=== PATIENT | male | born 1970 | race American Indian/Alaskan Native ===

== ENCOUNTER 2017-08-08 13:16 | Emergency (ER) | payer SELFPAY ==
[2017-08-08] MEDS ORDERED: LIDOCAINE VISCOUS 2% PO ONE (16:34)
[2017-08-08] MEDS ORDERED: ZOFRAN IV ONE (16:34)
[2017-08-08] MEDS ORDERED: PEPCID IV ONE (16:34)
[2017-08-08] MEDS ORDERED: ALUM-MAG HYDROX-SIMETH 200-200-20MG/5ML PO ONE (16:34)
--- NOTE | 2017-08-08 16:36 | Emergency Department Report ---
Blank Doc - Documentation Documentation: Patient is a 46-year-old male who presents with epigastric abdominal pain and blood tinged vomit that has been going on for about a month. Patient states that he is now always in pain and he is feeling a lot weaker. I will give IV Zofran and IV Pepcid, CBC and BMP and lipase.
[2017-08-08 16:56] LABS: Basophils % (Auto) 0.9 % (0.0-1.8); Eosinophils % (Auto) 0.9 % (0.0-4.3); Hematocrit 48.4 % (35.5-45.6); Hemoglobin 15.9 gm/dl (11.8-15.2); Lymphocytes # (Auto) 1.3 K/mm3 (1.2-5.4); Lymphocytes % (Auto) 31.9 % (13.4-35.0); Mean Corpuscular HGB Conc 33 % (32-34); Mean Corpuscular Hemoglobin 29 pg (28-32); Mean Corpuscular Volume 89 fl (84-94); Monocytes # (Auto) 0.6 K/mm3 (0.0-0.8); Monocytes % (Auto) 14.2 % (0.0-7.3); Platelet Count 132 K/mm3 (140-440); Red Blood Count 5.45 M/mm3 (3.65-5.03); Red Cell Distribution Width 14.7 % (13.2-15.2)
[2017-08-08 17:07] LABS: BUN/Creatinine Ratio 14; Blood Urea Nitrogen 13 mg/dL (9-20); Calcium 8.8 mg/dL (8.4-10.2); Hemolysis Index 21
[2017-08-08 17:34] VITALS: BP 120/82
--- NOTE | 2017-08-08 18:33 | Emergency Department Report ---
ED GI Bleed HPI - General Chief complaint: GI Bleed Stated complaint: VOMITING BLOOD Time Seen by Provider: 08/08/17 16:34 Source: patient Mode of arrival: Ambulatory Limitations: No Limitations - History of Present Illness Initial comments: 46-year-old male past medical history smoker presents with complaint of approximately 5-6 weeks of intermittent episodes of vomiting with slightly blood -streaked vomitus. Patient states that he has been experiencing some chronic abdominal pain with associated nausea. States he has had some associated weight loss. Denies fever or chills denies chest pain denies shortness of breath. Patient is awake alert and oriented 3 fully lucid. States he is a smoker but denies excessive caffeine or alcohol use. Patient states he avidly drink soda. Patient adamantly denies any chest pain palpitations or shortness of breath during my interview. Patient screened by ED attending earlier today. Describes a burning esophageal sensation after vomiting. Denies any history of hepatitis or GI bleed. Patient denies any bright red blood on toilet paper or dark blood on stools. MD complaint: blood streaked emesis Onset/Timin -: week(s) Location: epigastric Radiation: epigastric Severity scale (0 -10): 4 Quality: burning Consistency: intermittent Associated Symptoms: nausea - Related Data Previous Rx's Medication Instructions Recorded Last Taken Type HYDROcodone/APAP 5-325 [[place] 1 each PO Q6HR PRN #16 tablet 11/28/13 Unknown Rx 5-325 mg TAB] Sulfamethoxazole/Trimethoprim 1 each PO Q12H #20 tablet 11/28/13 Unknown Rx [Bactrim Ds] Famotidine [Pepcid] 20 mg PO BID #30 tablet 08/08/17 Unknown Rx Omeprazole 20 mg PO QDAY #44 capsule. 08/08/17 Unknown Rx Ondansetron [Zofran Odt] 4 mg PO Q8H PRN #8 tab.rapdis 08/08/17 Unknown Rx Allergies Allergy/AdvReac Type Severity Reaction Status Date / Time No Known Allergies Allergy Unverified 11/28/13 11:28 ED Review of Systems ROS: Stated complaint: VOMITING BLOOD Other details as noted in HPI Constitutional: denies: chills, fever Eyes: denies: eye pain, eye discharge, vision change ENT: denies: ear pain, throat pain Respiratory: denies: cough, shortness of breath, wheezing Cardiovascular: denies: chest pain, palpitations Endocrine: no symptoms reported Gastrointestinal: nausea, hematemesis. denies: abdominal pain, diarrhea Genitourinary: denies: urgency, dysuria Musculoskeletal: denies: back pain, joint swelling, arthralgia Skin: denies: rash, lesions Neurological: denies: headache, weakness, paresthesias Psychiatric: denies: anxiety, depression Hematological/Lymphatic: denies: easy bleeding, easy bruising ED Past Medical Hx - Past Medical History Previous Medical History?: No - Surgical History Past Surgical History?: No - Social History Smoking Status: Current Every Day Smoker Substance Use Type: None - Medications Home Medications: Home Medications Medication Instructions Recorded Confirmed Last Taken Type HYDROcodone/APAP 5-325 [[place] 1 each PO Q6HR PRN #16 tablet 11/28/13 Unknown Rx 5-325 mg TAB] Sulfamethoxazole/Trimethoprim 1 each PO Q12H #20 tablet 11/28/13 Unknown Rx [Bactrim Ds] Famotidine [Pepcid] 20 mg PO BID #30 tablet 08/08/17 Unknown Rx Omeprazole 20 mg PO QDAY #44 capsule.dr 08/08/17 Unknown Rx Ondansetron [Zofran Odt] 4 mg PO Q8H PRN #8 tab.rapdis 08/08/17 Unknown Rx ED Physical Exam - General Limitations: No Limitations General appearance: alert, in no apparent distress - Head Head exam: Present: atraumatic, normocephalic - Eye Eye exam: Present: normal appearance, PERRL, EOMI - ENT ENT exam: Present: mucous membranes moist - Neck Neck exam: Present: normal inspection - Respiratory Respiratory exam: Present: normal lung sounds bilaterally. Absent: respiratory distress - Cardiovascular Cardiovascular Exam: Present: regular rate, normal rhythm. Absent: systolic murmur, diastolic murmur, rubs, gallop - GI/Abdominal GI/Abdominal exam: Present: soft (abdomen soft nontender nondistended on clinical exam), normal bowel sounds - Rectal Rectal exam: Present: deferred - Extremities Exam Extremities exam: Present: normal inspection - Back Exam Back exam: Present: normal inspection - Neurological Exam Neurological exam: Present: alert, oriented X3 - Psychiatric Psychiatric exam: Present: normal affect, normal mood - Skin Skin exam: Present: warm, dry, intact, normal color. Absent: rash ED Course Vital Signs 08/08/17 08/08/17 13:48 17:33 Temperature 98.9 F Pulse Rate 63 68 Respiratory 18 20 Rate Blood Pressure 114/81 Blood Pressure 120/82 [Left] O2 Sat by Pulse 97 98 Oximetry ED Medical Decision Making - Lab Data Result diagrams: 08/08/17 16:39 08/08/17 16:39 - Medical Decision Making A/P: Intermittent hematemesis for approximately 6 weeks 1-I emphasized the importance of follow-up with gastroenterology to the patient. I explained to him that as he is not actively hemorrhaging at this time and has not exhibited any hematemesis while in the ED he must follow-up for outpatient upper endoscopy. 2-H&H stable, BMP unremarkable 3-Pepcid, omeprazole, short course Zofran when necessary 4-educated patient on diet for curtain ulcers. I encouraged him to decrease his smoking and avoid acidic sugary beverages greasy food spicy food and to attempt more bland diets that are easy to digest. [email or web address]-[email or web address]-fum-gtfoel?[email or web address]&source=see_link Critical care attestation.: If time is entered above; I have spent that time in minutes in the direct care of this critically ill patient, excluding procedure time. ED Disposition Clinical Impression: Hematemesis Qualifiers: Nausea presence: with nausea Qualified Code(s): K92.0 - Hematemesis Disposition: -01 TO HOME OR SELFCARE Is pt being admited?: No Does the pt Need Aspirin: No Condition: Stable Instructions: Diet for Ulcers and Gastritis (ED), Gastroesophageal Reflux Disease (ED) Prescriptions: Famotidine [Pepcid] 20 mg PO BID #30 tablet Omeprazole 20 mg PO QDAY #44 capsule. Ondansetron [Zofran Odt] 4 mg PO Q8H PRN #8 tab.rapdis PRN Reason: Nausea Referrals: [facility] [Provider Group] - 3-5 Days [facility] [Provider Group] - 3-5 Days Forms: Accompanied Note, Work/School Release Form(ED) Time of Disposition: 18:34
== END 2017-08-08 18:57 | disposition home or self-care (01) ==
LOC: ED 13:16
DX: K92.0 Hematemesis (principal); F17.200 Nicotine dependence, unspecified, uncomplicated
CPT/HCPCS: 36415; 80048; 83690; 85025; 96374; 96375; 99283; J2405

== ENCOUNTER 2019-06-21 07:03 | Emergency (ER) | payer SELFPAY ==
[2019-06-21 07:15] VITALS: BP 138/95
[2019-06-21 08:09] LABS: Hematocrit 50.6 % (35.5-45.6); Hemoglobin 16.8 gm/dl (11.8-15.2); Mean Corpuscular HGB Conc 33 % (32-34); Mean Corpuscular Volume 89 fl (84-94); Platelet Count 185 K/mm3 (140-440); Red Blood Count 5.72 M/mm3 (3.65-5.03); Red Cell Distribution Width 14.9 % (13.2-15.2)
[2019-06-21 08:21] LABS: Alanine Aminotransferase 27 units/L (7-56); BUN/Creatinine Ratio 15; Blood Urea Nitrogen 17 mg/dL (9-20); Calcium 9.4 mg/dL (8.4-10.2); Hemolysis Index 32
[2019-06-21] MEDS ORDERED: FAMOTIDINE 20 MG/2 ML INJ IV ONE (10:22)
[2019-06-21] MEDS ORDERED: SODIUM CHLORIDE 0.9% 1000 ML 1,000 ML IV ONE (10:22)
[2019-06-21] MEDS ORDERED: ONDANSETRON 4 MG/2 ML INJ IM ONE (10:22)
--- NOTE | 2019-06-21 10:24 | Emergency Department Report ---
ED General Adult HPI - General Chief complaint: Abdominal Pain Stated complaint: WEAKNESS Source: patient Mode of arrival: Ambulatory Limitations: No Limitations - History of Present Illness Initial comments: 48-year-old male complaining of nausea and vomiting on and off x one month. He states that he's lost about 15 pounds in a month. Over the last 2 days of vomiting and abdominal pain has increased. He denies any alcohol or drug use. States he smokes one cigarette daily.. Patient states when he last urinated his urine appeared to have blood in it. He denies chest pain he denies shortness of breath. He denies fever no diarrhea Location: abdomen Improves with: none Worsens with: none Associated Symptoms: loss of appetite, malaise, nausea/vomiting. denies: chest pain, cough, fever/chills, shortness of breath, syncope, weakness Treatments Prior to Arrival: none - Related Data Previous Rx's Medication Instructions Recorded Last Taken Type HYDROcodone/APAP 5-325 [[place] 1 each PO Q6HR PRN #16 tablet 11/28/13 Unknown Rx 5-325 mg TAB] Sulfamethoxazole/Trimethoprim 1 each PO Q12H #20 tablet 11/28/13 Unknown Rx [Bactrim Ds] Famotidine [Pepcid] 20 mg PO BID #30 tablet 08/08/17 Unknown Rx Omeprazole 20 mg PO QDAY #44 capsule. 08/08/17 Unknown Rx Ondansetron [Zofran Odt] 4 mg PO Q8H PRN #8 tab.rapdis 08/08/17 Unknown Rx Omeprazole Magnesium [PriLOSEC Otc] 20 mg PO BID #60 tab 06/21/19 Unknown Rx Ondansetron [Zofran Odt] 4 mg PO Q8HR PRN #12 tab.rapdis 06/21/19 Unknown Rx Allergies Allergy/AdvReac Type Severity Reaction Status Date / Time No Known Allergies Allergy Unverified 11/28/13 11:28 ED Review of Systems ROS: Stated complaint: WEAKNESS Other details as noted in HPI Comment: All other systems reviewed and negative Constitutional: chills. denies: fever Eyes: denies: eye pain ENT: denies: ear pain, throat pain Respiratory: denies: cough, shortness of breath Cardiovascular: denies: chest pain, palpitations, dyspnea on exertion Gastrointestinal: abdominal pain, nausea, vomiting. denies: constipation Genitourinary: hematuria. denies: dysuria Neurological: denies: headache Psychiatric: denies: anxiety, depression Hematological/Lymphatic: denies: easy bleeding ED Past Medical Hx - Past Medical History Previous Medical History?: No - Surgical History Past Surgical History?: No - Social History Smoking Status: Current Every Day Smoker Substance Use Type: None - Medications Home Medications: Home Medications Medication Instructions Recorded Confirmed Last Taken Type HYDROcodone/APAP 5-325 [[place] 1 each PO Q6HR PRN #16 tablet 11/28/13 Unknown Rx 5-325 mg TAB] Sulfamethoxazole/Trimethoprim 1 each PO Q12H #20 tablet 11/28/13 Unknown Rx [Bactrim Ds] Famotidine [Pepcid] 20 mg PO BID #30 tablet 08/08/17 Unknown Rx Omeprazole 20 mg PO QDAY #44 capsule. 08/08/17 Unknown Rx Ondansetron [Zofran Odt] 4 mg PO Q8H PRN #8 tab.rapdis 08/08/17 Unknown Rx Omeprazole Magnesium [PriLOSEC Otc] 20 mg PO BID #60 tab 06/21/19 Unknown Rx Ondansetron [Zofran Odt] 4 mg PO Q8HR PRN #12 tab.rapdis 06/21/19 Unknown Rx ED Physical Exam - General Limitations: No Limitations General appearance: alert, in no apparent distress - Head Head exam: Present: atraumatic - Eye Eye exam: Present: normal appearance. Absent: scleral icterus, conjunctival injection - ENT ENT exam: Present: normal exam, mucous membranes moist, other (poor dentition) - Neck Neck exam: Present: normal inspection, tenderness. Absent: lymphadenopathy - Respiratory Respiratory exam: Present: normal lung sounds bilaterally. Absent: respiratory distress, wheezes, rales, rhonchi - Cardiovascular Cardiovascular Exam: Present: regular rate, normal rhythm - GI/Abdominal GI/Abdominal exam: Present: soft, tenderness (epigastric tenderness), normal bowel sounds. Absent: distended - Extremities Exam Extremities exam: Present: normal inspection, normal capillary refill - Back Exam Back exam: Present: normal inspection. Absent: CVA tenderness (R), CVA tenderness (L) - Neurological Exam Neurological exam: Present: alert, oriented X3 - Psychiatric Psychiatric exam: Present: normal affect - Skin Skin exam: Present: warm, dry, intact, normal color. Absent: rash ED Course Vital Signs 06/21/19 07:10 Temperature 97.3 F L Pulse Rate 58 L Respiratory 18 Rate Blood Pressure 138/95 O2 Sat by Pulse 97 Oximetry - Reevaluation(s) Reevaluation #1: 06/21/19 15:04 Patient asleep in no distress no current complaints ED Medical Decision Making - Lab Data Result diagrams: 06/21/19 07:41 06/21/19 07:41 - Radiology Data Radiology results: report reviewed CT of Abd IMPRESSION: 1. Negative for obstruction or localized inflammation. 2. Evaluation limited by paucity of intestinal fat. - Medical Decision Making 48-year-old male with complaint of abdominal pain in the mid upper region. He denies drug and alcohol use blood work completed CBC no acute findings CMP no acute findings here and no signs and infection small red blood cells seen in his urine. CT of the abdomen without contrast IMPRESSION: 1. Negative for obstruction or localized inflammation. 2. Evaluation limited by paucity of intestinal fat. 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 Plan to give patient is short course of Prilosec when Zofran PRN and follow-up with GI doctor for further testing and evaluation Critical Care Time: No Critical care attestation.: If time is entered above; I have spent that time in minutes in the direct care o f this critically ill patient, excluding procedure time. ED Disposition Clinical Impression: Abdominal pain Qualifiers: Abdominal location: upper abdomen, unspecified Qualified Code(s): R10.10 - Upper abdominal pain, unspecified Disposition: DC-01 TO HOME OR SELFCARE Is pt being admited?: No Does the pt Need Aspirin: No Condition: Stable Instructions: Abdominal Pain (ED), Diet for Ulcers and Gastritis (ED), Gastroesophageal Reflux Disease (ED) Additional Instructions: [place] diet follow up with [employer] , your Primary care doctor or [facility]. Stop smoking cigarettes. Prescriptions: Omeprazole Magnesium [PriLOSEC Otc] 20 mg PO BID #60 tab Ondansetron [Zofran Odt] 4 mg PO Q8HR PRN #12 tab.rapdis PRN Reason: Nausea Referrals: PRIMARY CARE, [Primary Care Provider] - 3-[address] [facility] [Provider Group] - 3-5 Days Time of Disposition: 15:11
[2019-06-21 11:14] LABS: Band Neutrophils # (Manual) 0.1 K/mm3; Basophils % (Manual) 0 % (0.0-1.8); Eosinophils % (Manual) 0 % (0.0-4.3); Total Cells Counted 100
[2019-06-21 11:15] LABS: Target Cells Few
[2019-06-21 11:16] LABS: Platelet Estimate Consistent w Auto
[2019-06-21 12:20] LABS: Bilirubin,Urine NEG (Negative); Blood,Urine SM (Negative); Color,Urine Amber (Yellow); Mucus,Urine 3+ /HPF; Urobilinogen,Urine < 2.0 mg/dL (<2.0)
--- NOTE | 2019-06-21 14:19 | Cat Scan Report ---
CT abdomen pelvis wo con INDICATION: Hematuria. TECHNIQUE: All CT scans at this location are performed using the following dose modulation technique: Automated exposure control. CONTRAST: None. COMPARISON: None available. CT ABDOMEN: The parenchymal organs are unremarkable in appearance. Negative for abdominal mass, fluid or inflammation. The bowel is not dilated or thickened. The aorta contains mild atherosclerotic calcification. CT PELVIS: Negative for distal ureteral stone, pelvic fluid collection or inflammation. IMPRESSION: 1. Negative for obstruction or localized inflammation. 2. Evaluation limited by paucity of intestinal fat. Signer Name: Abdi Munoz MD Signed: 06/21/2019 2:14 PM Workstation Name: [id number]
== END 2019-06-21 15:28 | disposition home or self-care (01) ==
LOC: ED 07:03
DX: R10.10 Upper abdominal pain, unspecified (principal); R11.2 Nausea with vomiting, unspecified; R63.0 Anorexia; F17.200 Nicotine dependence, unspecified, uncomplicated; Z79.899 Other long term (current) drug therapy
CPT/HCPCS: 36415; 74176; 80053; 81001; 83690; 85007; 85025; 96361; 96372; 96374; 99284; J2405; J7030